=== PATIENT | male | born 1990 | race Caucasian/White ===

== ENCOUNTER 2019-09-15 04:23 | Emergency (ER) | payer SELFPAY | END 2019-09-15 07:56 | disposition home or self-care (01) | LOC: BURERS 04:23 | DX: S60.522A Blister (nonthermal) of left hand, initial encounter (principal); S60.521A Blister (nonthermal) of right hand, initial encounter; F17.210 Nicotine dependence, cigarettes, uncomplicated; W05.0XXA Fall from non-moving wheelchair, initial encounter; Y92.410 Unspecified street and highway as the place of occurrence of the external cause | CPT/HCPCS: 99283 ==